=== PATIENT | female | born 1970 | race African-American/Black ===

== ENCOUNTER 2024-03-10 14:44 | Emergency (ER) | payer MEDICAID ==
[~2024-03-10] VITALS: Ht 167.6 cm; Wt 95.5 kg
[2024-03-10 14:54] VITALS: O2SAT 99
[2024-03-10] MEDS ORDERED: IBUP-2029 MT (16:12)
[2024-03-10 16:49] VITALS: BP 135/80; PULSE 107; RESP 20; TEMP 97
== END 2024-03-10 16:51 | disposition home or self-care (01) ==
LOC: ER 14:44
DX: M25.512 Pain in left shoulder (principal); I10 Essential (primary) hypertension
CPT/HCPCS: 73030; 99283; Z7610